=== PATIENT | female | born 1935 | race Hispanic/Latino ===

== ENCOUNTER 2019-07-02 16:59 | Emergency (ER) | payer OTHER ==
[2019-07-02 17:47] LABS: Absolute Lymphocytes (CBC) 1.5 K/uL (0.7-4.9); Basophils % 0.5 % (0-1.3); Hematocrit 37.2 % (36.0-45.0); Lymphocytes % 26.6 % (15.3-44.8); RBC Red Blood Cell Count 4.21 M/uL (3.86-4.86)
[2019-07-02 17:53] LABS: Protime INR 0.97
--- NOTE | 2019-07-02 18:02 | RAD REPORT ---
EXAM DESCRIPTION: RAD - Chest Single View - 07/02/2019 5:56 pm CLINICAL HISTORY: CHEST PAIN Chest pain. COMPARISON: Chest Single View dated 06/26/2017; Chest Pa And Lat (2 Views) dated 11/08/2016 FINDINGS: Portable technique limits examination quality. Mild interstitial pulmonary edema seen. Heart is moderately enlarged in size. No displaced fractures. Small to moderate hiatal hernia. IMPRESSION: Mild CHF.
[2019-07-02 18:16] LABS: ALT/SGPT 17 U/L (12-78); AST/SGOT 15 U/L (15-37); Albumin 3.7 g/dL (3.4-5.0); Alkaline Phosphatase 95 U/L (45-117); BUN Blood Urea Nitrogen 18 mg/dL (7-18); Bicarbonate 26 mmol/L (21-32); Bilirubin Direct 0.1 mg/dL (0-0.2); Bilirubin Total 0.3 mg/dL (0.2-1.0); Glucose Level 93 mg/dL (74-106); NT PRO-BNP 606 pg/mL (<450); Potassium 3.7 mmol/L (3.5-5.1); Protein, Total 7.2 g/dL (6.4-8.2); Sodium Level 139 mmol/L (136-145); Troponin (Emerg Dept Use Only) < 0.02 ng/mL (0.0-0.045)
--- NOTE | 2019-07-02 18:48 | EDPHYS ---
Physician Documentation [facility] Name: Hasmukh Escobar Age: 84 yrs Sex: Female : 1935 Arrival Date: 07/02/2019 Time: 17:03 Bed 23 Private MD: ED Physician Tacho Rodriguez HPI: 07/02 17:56 This 84 yrs old Female presents to ER via Ambulatory with complaints of pm1 Doesn't Feel Right. 17:56 Indigestion for the past three days. Reports onset after eating for the past three pm1 days. Has a history of hiatal hernia. Patient reports not feeling well since yesterday. It started after she was told by her home health nurse that her blood pressure was elevated 150/80's. Patient does not have any chest pain or shortness of breath. but was concerned that she might be having a heart attack due to the elevated blood pressure with the indigestion. Severity of symptoms: Pain is currently a 0 / 10. . Historical: - Allergies: 17:20 Morphine; mg2 - Home Meds: 17:20 amlodipine 10 mg tab 1 tab once daily [Active]; esomeprazole magnesium 40 mg Oral cpDR mg2 1 cap once daily [Active]; metoprolol tartrate 50 mg Oral tab 1 tab one tab QAM one half tab QPM [Active]; tolterodine 4 mg Oral cp24 1 cap once daily [Active]; - PMHx: 17:20 hiatal hernia; Hypertension; mg2 - PSHx: 17:20 Cholecystectomy; Hysterectomy; mg2 - Immunization history:: Flu vaccine is up to date. - Social history:: Smoking status: Patient/guardian denies using tobacco, Patient/guardian denies using alcohol, street drugs, IV drugs. - Ebola Screening: : No symptoms or risks identified at this time. ROS: 17:56 Constitutional: Negative for fever, chills, and weight loss, Eyes: Negative for injury, pm1 pain, redness, and discharge, ENT: Negative for injury, pain, and discharge, Neck: Negative for injury, pain, and swelling, Cardiovascular: Negative for chest pain, palpitations, and edema, Respiratory: Negative for shortness of breath, cough, wheezing, and pleuritic chest pain, Abdomen/GI: Negative for abdominal pain, nausea, vomiting, diarrhea, and constipation, Back: Negative for injury and pain, : Negative for injury, bleeding, discharge, and swelling, MS/Extremity: Negative for injury and deformity, Skin: Negative for injury, rash, and discoloration, Neuro: Negative for headache, weakness, numbness, tingling, and seizure. Exam: 17:56 Constitutional: This is a well developed, well nourished patient who is awake, alert, pm1 and in no acute distress. Head/Face: Normocephalic, atraumatic. 17:56 Eyes: Right pupil equal round and reactive to light, extra-ocular motions intact. Lids and lashes normal. Right conjunctiva and sclera are non-icteric and not injected. Right cornea within normal limits. Right periorbital areas with no swelling, redness, or edema. Left eye atrophied ENT: Nares patent. No nasal discharge, no septal abnormalities noted. Tympanic membranes are normal and external auditory canals are clear. Oropharynx with no redness, swelling, or masses, exudates, or evidence of obstruction, uvula midline. Mucous membranes moist. Neck: Trachea midline, no thyromegaly or masses palpated, and no cervical lymphadenopathy. Supple, full range of motion without nuchal rigidity, or vertebral point tenderness. No Meningismus. Chest/axilla: Normal chest wall appearance and motion. Nontender with no deformity. No lesions are appreciated. Cardiovascular: Regular rate and rhythm with a normal S1 and S2. No gallops, murmurs, or rubs. Normal PMI, no JVD. No pulse deficits. Respiratory: Lungs have equal breath sounds bilaterally, clear to auscultation and percussion. No rales, rhonchi or wheezes noted. No increased work of breathing, no retractions or nasal flaring. Abdomen/GI: Soft, non-tender, with normal bowel sounds. No distension or tympany. No guarding or rebound. No evidence of tenderness throughout. Back: No spinal tenderness. No costovertebral tenderness. Full range of motion. Skin: Warm, dry with normal turgor. Normal color with no rashes, no lesions, and no evidence of cellulitis. MS/ Extremity: Pulses equal, no cyanosis. Neurovascular intact. Full, normal range of motion. 17:56 Neuro: Orientation: is normal, Mentation: is normal, Motor: is normal, moves all fours, Gait: is steady, at a normal pace, without difficulty. Vital Signs: 17:18 BP 153 / 86; Pulse 64; Resp 18; Temp 97.8; Pulse Ox 100% on R/A; Weight 72.12 kg; mg2 Height 5 ft. 0 in. (152.40 cm); Pain 0/10; 18:55 BP 150 / 83; Pulse 60; Resp 18; Temp 98(O); Pulse Ox 100% on R/A; Pain 0/10; mg2 17:18 Body Mass Index 31.05 (72.12 kg, 152.40 cm) mg2 MDM: 17:16 Patient medically screened. pm1 18:45 Data reviewed: vital signs. Data interpreted: Pulse oximetry: on room air is 100 %. pm1 Interpretation: normal. Counseling: I had a detailed discussion with the patient and/or guardian regarding: the historical points, exam findings, and any diagnostic results supporting the discharge/admit diagnosis, lab results, the need for outpatient follow up, to return to the emergency department if symptoms worsen or persist or if there are any questions or concerns that arise at home. 07/02 17:24 Order name: Basic Metabolic Panel; Complete Time: 18:19 pm1 07/02 17:24 Order name: CBC with Diff; Complete Time: 17:54 pm1 07/02 17:24 Order name: LFT's; Complete Time: 18:19 pm1 07/02 17:24 Order name: Magnesium; Complete Time: 18:19 pm1 07/02 17:24 Order name: NT PRO-BNP; Complete Time: 18:19 pm1 07/02 17:24 Order name: PT-INR; Complete Time: 18:00 pm1 07/02 17:24 Order name: Troponin (emerg Dept Use Only); Complete Time: 18:19 pm1 07/02 17:24 Order name: XRAY Chest (1 view); Complete Time: 18:19 pm1 07/02 17:24 Order name: EKG; Complete Time: 17:25 pm1 07/02 17:24 Order name: Cardiac monitoring; Complete Time: 17:34 pm1 07/02 17:24 Order name: EKG - Nurse/Tech; Complete Time: 17:34 pm1 07/02 17:24 Order name: IV Saline Lock; Complete Time: 17:45 pm1 07/02 17:24 Order name: Labs collected and sent; Complete Time: 17:45 pm1 07/02 17:24 Order name: O2 Per Protocol; Complete Time: 17:45 pm1 07/02 17:24 Order name: O2 Sat Monitoring; Complete Time: 17:45 pm1 Administered Medications: No medications were administered Disposition: 07/03 15:21 Co-signature as Attending Physician, Tacho Rodriguez MD. Disposition: 07/02/19 18:47 Discharged to Home. Impression: Essential (primary) hypertension. - Condition is Stable. - Discharge Instructions: Hypertension, How to Take Your Blood Pressure, [id number], DASH Eating Plan, Managing Your Hypertension. - Medication Reconciliation Form, Thank You Letter, Antibiotic Education, Prescription Opioid Use form. - Follow up: Emergency Department; When: As needed; Reason: Worsening of condition. Follow up: Private Physician; When: 2 - 3 days; Reason: Recheck today's complaints, Continuance of care, Re-evaluation by your physician. - Problem is new. - Symptoms have improved. Signatures: Dispatcher [employer] EDMS Bernabe Hastings, COLLAR BASTER JUMPBASTING COLLAR BASTER JUMPBASTING pm1 Tacho Rodriguez MD MD Israel Hernandez RN RN mg2 Corrections: (The following items were deleted from the chart) 07/02 19:03 18:47 07/02/2019 18:47 Discharged to Home. Impression: Essential (primary) mg2 hypertension. Condition is Stable. Forms are Medication Reconciliation Form, Thank You Letter, Antibiotic Education, Prescription Opioid Use. Follow up: Emergency Department; When: As needed; Reason: Worsening of condition. Follow up: Private Physician; When: 2 - 3 days; Reason: Recheck today's complaints, Continuance of care, Re-evaluation by your physician. Problem is new. Symptoms have improved. pm1
--- NOTE | 2019-07-02 18:48 | ER ---
Nurse's Notes [facility] Name: Hasmukh Escobar Age: 84 yrs Sex: Female : 1935 Arrival Date: 07/02/2019 Time: 17:03 Bed 23 Private MD: Diagnosis: Essential (primary) hypertension Presentation: 07/02 17:16 Presenting complaint: Patient states: i dont feel right like im weak and feeling of mg2 indigestion since yesterday. i dont have chest pain or shortness of breath. Transition of care: patient was not received from another setting of care. Onset of symptoms was July 01, 2019. Risk Assessment: Do you want to hurt yourself or someone else? Patient reports no desire to harm self or others. Initial Sepsis Screen: Does the patient meet any 2 criteria? No. Patient's initial sepsis screen is negative. Does the patient have a suspected source of infection? No. Patient's initial sepsis screen is negative. Care prior to arrival: None. 17:16 Method Of Arrival: Ambulatory mg2 17:16 Acuity: HUGO 3 mg2 Historical: - Allergies: 17:20 Morphine; mg2 - Home Meds: 17:20 amlodipine 10 mg tab 1 tab once daily [Active]; esomeprazole magnesium 40 mg Oral cpDR mg2 1 cap once daily [Active]; metoprolol tartrate 50 mg Oral tab 1 tab one tab QAM one half tab QPM [Active]; tolterodine 4 mg Oral cp24 1 cap once daily [Active]; - PMHx: 17:20 hiatal hernia; Hypertension; mg2 - PSHx: 17:20 Cholecystectomy; Hysterectomy; mg2 - Immunization history:: Flu vaccine is up to date. - Social history:: Smoking status: Patient/guardian denies using tobacco, Patient/guardian denies using alcohol, street drugs, IV drugs. - Ebola Screening: : No symptoms or risks identified at this time. Screenin:51 Abuse screen: Denies threats or abuse. Denies injuries from another. Nutritional mg2 screening: No deficits noted. Tuberculosis screening: No symptoms or risk factors identified. Fall Risk IV access (20 points). Assessment: 17:50 General: Appears in no apparent distress. comfortable, Behavior is calm, cooperative. mg2 Pain: Denies pain. Neuro: Level of Consciousness is awake, alert, obeys commands, Oriented to person, place, time, situation. Neuro: Reports weakness in whole body. Cardiovascular: Capillary refill < 3 seconds Patient's skin is warm and dry. Respiratory: Airway is patent Respiratory effort is even, unlabored, Respiratory pattern is regular, symmetrical. GI: No signs and/or symptoms were reported involving the gastrointestinal system. : No signs and/or symptoms were reported regarding the genitourinary system. EENT: No signs and/or symptoms were reported regarding the EENT system. Derm: Skin is intact, is healthy with good turgor, Skin is pink, warm \T\ dry. normal. Musculoskeletal: Circulation, motion, and sensation intact. Capillary refill < 3 seconds. 18:55 Reassessment: Patient states feeling better. mg2 Vital Signs: 17:18 BP 153 / 86; Pulse 64; Resp 18; Temp 97.8; Pulse Ox 100% on R/A; Weight 72.12 kg; mg2 Height 5 ft. 0 in. (152.40 cm); Pain 0/10; 18:55 BP 150 / 83; Pulse 60; Resp 18; Temp 98(O); Pulse Ox 100% on R/A; Pain 0/10; mg2 17:18 Body Mass Index 31.05 (72.12 kg, 152.40 cm) mg2 ED Course: 17:03 Patient arrived in ED. as 17:16 Bernabe Hastings NP is PHCP. pm1 17:16 Tacho Rodriguez MD is Attending Physician. pm1 17:16 Israel Hernandez, DENI is Primary Nurse. mg2 17:18 Triage completed. mg2 17:20 Arm band placed on. mg2 17:52 Patient has correct armband on for positive identification. career development manager on. Pulse mg2 ox on. NIBP on. Door closed. Warm blanket given. 17:52 No provider procedures requiring assistance completed. Inserted saline lock: 22 gauge mg2 in left antecubital area, using aseptic technique. Blood collected. 17:55 XRAY Chest (1 view) In Process Unspecified. EDMS 18:00 EKG done, by tomographic tech. reviewed by Bernabe Hastings NP. sm3 18:56 IV discontinued, intact, bleeding controlled, No redness/swelling at site. Pressure mg2 dressing applied. Administered Medications: No medications were administered Outcome: 18:47 Discharge ordered by . pm1 18:56 Discharged to home ambulatory. mg2 18:56 Condition: stable 18:56 Discharge instructions given to patient, Instructed on discharge instructions, follow up and referral plans. Demonstrated understanding of instructions, follow-up care. 19:03 Patient left the ED. mg2 Signatures: Dispatcher [employer] Sarah Sauceda Patrick, NP FUR GLAZER pm1 Israel Hernandez RN RN mg2 Sanjuana Guido 3
[2019-07-02 19:16] VITALS: O2SAT 100
[2019-07-02 19:17] VITALS: BP 150/83; TEMP 98
--- NOTE | 2019-07-03 07:18 | EKG ---
Test Date: 2019-07-02 Test Time: 17:31:58 Community Living Specialist: CASSIA MEASUREMENT RESULTS: Intervals: Rate: 64 NE: QRSD: 100 QT: 432 QTc: 445 [place]: P: NE: QRS: 37 T: 16 INTERPRETIVE STATEMENTS: Sinus rhythm T wave abnormality, consider inferior ischemia Abnormal ECG Compared to ECG 06/26/2017 17:26:58 T-wave abnormality now present Electronically Signed On 07-03-19 07:17:52 CDT by Chiki Moore
== END 2019-07-02 19:03 | disposition home or self-care (01) ==
LOC: ER 16:59
DX: I10 Essential (primary) hypertension (principal); Z88.6 Allergy status to analgesic agent
CPT/HCPCS: 36415; 71045; 80048; 80076; 83735; 83880; 84484; 85025; 85610; 93005; 99284

== ENCOUNTER 2020-03-07 07:56 | Emergency (ER) | payer OTHER ==
[2020-03-07] MEDS ORDERED: ONDANSETRON 4 MG/2 ML VIAL ONE (08:36)
[2020-03-07] MEDS ORDERED: MECLIZINE HCL 12.5 MG TAB ONE (08:36)
[2020-03-07] MEDS ORDERED: NA CHLORIDE 0.9% 500 ML ONE (08:37)
[2020-03-07 08:49] LABS: Absolute Lymphocytes (CBC) 0.9 K/uL (0.7-4.9); Basophils % 0.9 % (0-1.3); Hematocrit 37.9 % (36.0-45.0); MPV 8.3 fL (7.6-11.3)
[2020-03-07 08:53] LABS: Protime INR 0.97
[2020-03-07 08:57] LABS: Potassium 3.8 mmol/L (3.5-5.1)
--- NOTE | 2020-03-07 09:07 | RAD REPORT ---
EXAM DESCRIPTION: CT - Head Brain Wo Cont - 03/07/2020 8:45 am CLINICAL HISTORY: vertigo;Dizziness COMPARISON: No comparisons TECHNIQUE: Axial 5 mm thick images of the head were obtained without IV contrast. All CT scans are performed using dose optimization technique as appropriate and may include automated exposure control or mA/KV adjustment according to patient size. FINDINGS: No intracranial hemorrhage, mass, edema or shift of mid-line structures. No acute infarcti on changes seen. No cortical edema or sulcal effacement. Ventricles are normal. No significant atroph y or chronic ischemic changes seen. Asymmetry is created by head tilt. Mastoid air cells and visualized portions of the paranasal sinuses are clear. No acute bony findings. Patient has normal variant hyperostosis frontalis interna. Left globe is collapsed with calcification. This is a chronic appearance. IMPRESSION: No acute intracranial finding identifiable.
[2020-03-07 10:32] LABS: Urine Blood NEGATIVE (NEG); Urine Glucose NEGATIVE (NEG); Urine Protein NEGATIVE (NEG); Urine Specific Gravity 1.025 (1.005-1.030); Urine pH 5.5 (5.0-7.0)
[2020-03-07 10:40] LABS: Urine Bacteria <20 /HPF (<20); Urine Culture Reflex Order NOT NEEDED; Urine RBC <5 /HPF (NONE SEEN)
[2020-03-07] MEDS ORDERED: DIAZEPAM 2 MG TABLET ONE (11:16)
--- NOTE | 2020-03-07 13:04 | RAD REPORT ---
EXAM DESCRIPTION: MRI - Brain Wo Cont - 03/07/2020 12:53 pm CLINICAL HISTORY: Vertigo COMPARISON: March 07, [address] TECHNIQUE: Axial, sagittal, and coronal magnetic images of the brain were obtained. Contrast was not requested FINDINGS: No abnormal signal is present within the brain. Diffusion-weighted/ADC mapping does not reveal evidence of acute infarction. The ventricles are normal caliber. An extra-axial fluid collection is not present Fluid within the sinuses/mastoids is not noted Chronic deformity left globe IMPRESSION: No acute abnormality is displayed
--- NOTE | 2020-03-07 13:12 | EDPHYS ---
Physician Documentation [facility] Name: Hasmukh Escobar Age: 84 yrs Sex: Female : 1935 Arrival Date: 03/07/2020 Time: 07:58 Bed 5 Private MD: ED Physician Omkar Dunne HPI: 03/07 08:19 This 84 yrs old Female presents to ER via Wheelchair with complaints of rn Dizziness, Nausea. 08:19 The patient presents with dizziness, sense of spinning, vertigo. Onset: The rn symptoms/episode began/occurred this morning, upon awakening. Modifying factors: The symptoms are alleviated by holding head still, lying down, the symptoms are aggravated by movement of head, standing up, changing position. Severity of symptoms: At their worst the symptoms were moderate in the emergency department the symptoms have improved. The patient has not experienced similar symptoms in the past. The patient has not recently seen a physician. Reports when got out of bed and sat on edge, felt dizzy, room spinning, + nausea, no other neurological complaints, no recent head injury, denies previous stroke. No chest pain/fever/cough/abd pain. Reports better when laying down and not moving.. Historical: - Allergies: 08:10 Morphine; iw - Home Meds: 08:10 amlodipine 10 mg tab 1 tab once daily [Active]; esomeprazole magnesium 40 mg Oral cpDR iw 1 cap once daily [Active]; metoprolol tartrate 50 mg Oral tab 1 tab one tab QAM one half tab QPM [Active]; tolterodine 4 mg Oral cp24 1 cap once daily [Active]; valsartan-hydrochlorothiazide 320-12.5 mg Oral tab 1 tab once daily [Active]; - PMHx: 08:10 hiatal hernia; Hypertension; iw - PSHx: 08:10 Cholecystectomy; Hysterectomy; iw - Immunization history:: Adult Immunizations up to date. - Social history:: Smoking status: Patient denies any tobacco usage or history of. - Family history:: not pertinent. - Hospitalizations: : No recent hospitalization is reported. ROS: 08:19 Constitutional: Negative for fever, chills, and weight loss, Eyes: Negative for injury, rn pain, redness, and discharge, Cardiovascular: Negative for chest pain, palpitations, and edema, Respiratory: Negative for shortness of breath, cough, wheezing, and pleuritic chest pain, Abdomen/GI: Negative for abdominal pain, vomiting, diarrhea, and constipation, MS/Extremity: Negative for injury and deformity, Skin: Negative for injury, rash, and discoloration, Neuro: Negative for headache, weakness, numbness, tingling, and seizure. Exam: 08:19 Constitutional: This is a well developed, well nourished patient who is awake, alert, rn and in no acute distress. Head/Face: Normocephalic, atraumatic. Eyes: + left cataract with sunken globe, right eye normal exam. ENT: MMM Neck: Trachea midline, no thyromegaly or masses palpated, and no cervical lymphadenopathy. Supple, full range of motion without nuchal rigidity, or vertebral point tenderness. No Meningismus. Cardiovascular: Regular rate and rhythm. No pulse deficits. Respiratory: Speaking full sentences. No increased work of breathing, no retractions or nasal flaring. Abdomen/GI: soft, non-tender Skin: Warm, dry MS/ Extremity: Pulses equal, no cyanosis. Neurovascular intact. Full, normal range of motion. Equal circumference. Neuro: Awake and alert, GCS 15, oriented to person, place, time, and situation. Cranial nerves II-XII grossly intact. Motor strength 5/5 in all extremities. Sensory grossly intact. 09:09 ECG was reviewed by the Attending Physician. rn Vital Signs: 08:07 BP 130 / 51; Pulse 62; Resp 16; Temp 96.8; Pulse Ox 97% on R/A; Weight 72.12 kg; Height iw 5 ft. 0 in. (152.40 cm); 09:45 BP 135 / 56; Pulse 57; Resp 16; Pulse Ox 100% on R/A; Pain 0/10; hb 10:08 BP 143 / 59; Pulse 61; Resp 17; Pulse Ox 97% ; jl7 11:45 BP 148 / 58; Pulse 60; Resp 16; Temp 98.2; Pulse Ox 100% ; hb 13:00 BP 142 / 57; Pulse 60; Resp 15; Pulse Ox 98% on R/A; hb 08:07 Body Mass Index 31.05 (72.12 kg, 152.40 cm) iw MDM: 08:11 Patient medically screened. rn 09:27 ED course: Pt feels better, so far, neg w/u. . rn 13:10 Differential diagnosis: generalized weakness, hypovolemia, idiopathic dizziness, rn vertigo. Data reviewed: vital signs, nurses notes, lab test result(s), EKG, radiologic studies, CT scan, MRI, and as a result, I will discharge patient. Counseling: I had a detailed discussion with the patient and/or guardian regarding: the historical points, exam findings, and any diagnostic results supporting the discharge/admit diagnosis, lab results, radiology results, the need for outpatient follow up, to return to the emergency department if symptoms worsen or persist or if there are any questions or concerns that arise at home. Response to treatment: the patient's symptoms have mildly improved after treatment, and as a result, I will discharge patient. Special discussion: I discussed with the patient/guardian in detail that at this point there is no indication for admission to the hospital. It is understood, however, that if the symptoms persist or worsen the patient needs to return immediately for re-evaluation. ED course: No acute findings on MRi/ct head, UA neg, will dc home with prn meclizine and zofran with neuro f/u given vertigo symptoms. . 03/07 08:19 Order name: CBC with Diff; Complete Time: 09:16 rn 03/07 08:19 Order name: Basic Metabolic Panel; Complete Time: 09:16 rn 03/07 08:19 Order name: Protime (+inr); Complete Time: 09:16 rn 03/07 08:19 Order name: Ptt, Activated; Complete Time: 09:16 rn 03/07 08:19 Order name: Urine Microscopic Only; Complete Time: 10:47 rn 03/07 10:10 Order name: Urine Dipstick--Ancillary (enter results); Complete Time: 10:47 em1 03/07 08:19 Order name: CT Head Brain wo Cont; Complete Time: 09:16 rn 03/07 12:56 Order name: Brain Wo Cont; Complete Time: 13:10 EDMS 03/07 08:19 Order name: IV Start; Complete Time: 08:41 rn 03/07 08:19 Order name: Urine Dipstick-Ancillary (obtain specimen); Complete Time: 10:10 rn 03/07 08:22 Order name: EKG; Complete Time: 08:24 rn 03/07 08:22 Order name: EKG - Nurse/Tech; Complete Time: 09:18 rn EC:09 Rate is 59 beats/min. Rhythm is regular. QRS [place] is Normal. MT interval is normal. QRS rn interval is normal. QT interval is normal. No Q waves. T waves are Normal. No ST changes noted. Clinical impression: Sinus bradycardia. Interpreted by me. Reviewed by me. Administered Medications: 08:40 Drug: Meclizine 50 mg Route: PO; hb 09:30 Follow up: Response: No adverse reaction hb 08:40 Drug: Zofran (Ondansetron) 4 mg Route: IVP; Site: right antecubital; hb 09:10 Follow up: Response: No adverse reaction hb 08:40 Drug: NS 0.9% 500 ml Route: IV; Rate: bolus; Site: right antecubital; hb 09:30 Follow up: Response: No adverse reaction; IV Status: Completed infusion; IV Intake: hb 500ml 11:11 Drug: Valium 2 mg Route: PO; hb Disposition: 03/07/20 13:12 Discharged to Home. Impression: Vertigo, Dehydration. - Condition is Stable. - Discharge Instructions: Dehydration, Adult, Vertigo. - Prescriptions for Zofran ODT 4 mg Oral tablet,disintegrating - place 1 tablet by TRANSLINGUAL route every 8 hours As needed; 20 tablet. Meclizine 25 mg Oral Tablet - take 1 tablet by ORAL route every 8 hours As needed; 30 tablet. - Medication Reconciliation Form, Thank You Letter, Antibiotic Education, Prescription Opioid Use form. - Follow up: Carlo Light MD; When: As needed; Reason: Recheck today's complaints, Re-evaluation by your physician. - Problem is new. - Symptoms have improved. Signatures: Dispatcher [employer] EDMS Nadia Wong RN RN Omkar Dunne MD MD rn Baxter, Heather, RN RN Corrections: (The following items were deleted from the chart) 09:16 08:19 Constitutional: This is a well developed, well nourished patient who is awake, rn alert, and in no acute distress. Head/Face: Normocephalic, atraumatic. Eyes: + left cataract, right eye normal exam. ENT: MMM Neck: Trachea midline, no thyromegaly or masses palpated, and no cervical lymphadenopathy. Supple, full range of motion without nuchal rigidity, or vertebral point tenderness. No Meningismus. Cardiovascular: Regular rate and rhythm. No pulse deficits. Respiratory: Speaking full sentences. No increased work of breathing, no retractions or nasal flaring. Abdomen/GI: soft, non-tender Skin: Warm, dry MS/ Extremity: Pulses equal, no cyanosis. Neurovascular intact. Full, normal range of motion. Equal circumference. Neuro: Awake and alert, GCS 15, oriented to person, place, time, and situation. Cranial nerves II-XII grossly intact. Motor strength 5/5 in all extremities. Sensory grossly intact. rn 11:59 09:28 Brain Wo Cont+MRI.RAD.BRZ ordered. EDMS EDMS 12:56 11:58 MRA Head Wo Cont ordered. EDMS EDMS 13:38 13:12 03/07/2020 13:12 Discharged to Home. Impression: Vertigo; Dehydration. Condition hb is Stable. Forms are Medication Reconciliation Form, Thank You Letter, Antibiotic Education, Prescription Opioid Use. Follow up: Carlo Light; When: As needed; Reason: Recheck today's complaints, Re-evaluation by your physician. Problem is new. Symptoms have improved. rn
--- NOTE | 2020-03-07 13:12 | ER ---
Nurse's Notes [facility] Name: Hasmukh Escobar Age: 84 yrs Sex: Female : 1935 Arrival Date: 03/07/2020 Time: 07:58 Bed 5 Private MD: Diagnosis: Vertigo;Dehydration Presentation: 03/07 08:07 Chief complaint: Patient states: started to feel dizzy and nauseated about an hour ago, iw feels like the room is spinning, worse when she moves, denies vomiting. Coronavirus screen: Proceed with normal triage. Patient denies a cough. Patient denies shortness of breath or difficulty breathing. Patient denies measured and/or subjective temperature greater than 100.4F prior to today's visit. Patient denies travel on a cruise ship or to a country the [facility] [place] currently lists as an affected area. Patient denies contact with known and/or suspected case of COVID-19. Ebola Screen: Patient negative for fever greater than or equal to 101.5 degrees Fahrenheit, and additional compatible Ebola Virus Disease symptoms Patient denies exposure to infectious person. Patient denies travel to an Ebola-affected area in the 21 days before illness onset. No symptoms or risks identified at this time. Initial Sepsis Screen: Does the patient meet any 2 criteria? No. Patient's initial sepsis screen is negative. Does the patient have a suspected source of infection? No. Patient's initial sepsis screen is negative. Risk Assessment: Do you want to hurt yourself or someone else? Patient reports no desire to harm self or others. Onset of symptoms was March 07, 2020. 08:07 Method Of Arrival: Wheelchair iw 08:07 Acuity: HUGO 3 iw Historical: - Allergies: 08:10 Morphine; iw - Home Meds: 08:10 amlodipine 10 mg tab 1 tab once daily [Active]; esomeprazole magnesium 40 mg Oral cpDR iw 1 cap once daily [Active]; metoprolol tartrate 50 mg Oral tab 1 tab one tab QAM one half tab QPM [Active]; tolterodine 4 mg Oral cp24 1 cap once daily [Active]; valsartan-hydrochlorothiazide 320-12.5 mg Oral tab 1 tab once daily [Active]; - PMHx: 08:10 hiatal hernia; Hypertension; iw - PSHx: 08:10 Cholecystectomy; Hysterectomy; iw - Immunization history:: Adult Immunizations up to date. - Social history:: Smoking status: Patient denies any tobacco usage or history of. - Family history:: not pertinent. - Hospitalizations: : No recent hospitalization is reported. Screenin:15 Abuse screen: Denies threats or abuse. Denies injuries from another. Nutritional hb screening: No deficits noted. Tuberculosis screening: No symptoms or risk factors identified. Fall Risk None identified. Assessment: 08:15 General: Appears in no apparent distress. Behavior is calm, cooperative. Pain: Denies hb pain. Neuro: Level of Consciousness is awake, alert, obeys commands, Oriented to person, place, time, situation, Reports dizziness. Cardiovascular: Capillary refill < 3 seconds Patient's skin is warm and dry. Respiratory: Airway is patent Respiratory effort is even, unlabored, Respiratory pattern is regular, symmetrical. GI: Abdomen is non-distended, Reports nausea. : No signs and/or symptoms were reported regarding the genitourinary system. EENT: No signs and/or symptoms were reported regarding the EENT system. Derm: Skin is pink, warm \T\ dry. Musculoskeletal: No signs and/or symptoms reported regarding the musculoskeletal system. 09:00 Reassessment: Patient appears in no apparent distress at this time. Patient and/or hb family updated on plan of care and expected duration. Pain level reassessed. Patient is alert, oriented x 3, equal unlabored respirations, skin warm/dry/pink. 10:17 Reassessment: Pt to bathroom via wheelchair with assistance. Urine specimen provided. hb Pt reported being very dizzy, unable to ambulate without holding onto nurse, the wall, or bars on wall. Dr. Dunne notified. Pt assisted back to bed, placed back on monitor, bed locked in low position, call light within reach. 11:15 Reassessment: Patient appears in no apparent distress at this time. Patient and/or hb family updated on plan of care and expected duration. Pain level reassessed. Patient is alert, oriented x 3, equal unlabored respirations, skin warm/dry/pink. Reassessment: Patient appears in no apparent distress at this time. Patient and/or family updated on plan of care and expected duration. Pain level reassessed. Patient is alert, oriented x 3, equal unlabored respirations, skin warm/dry/pink. 12:30 Reassessment: Patient appears in no apparent distress at this time. No changes from hb previously documented assessment. Patient and/or family updated on plan of care and expected duration. Pain level reassessed. 13:30 Reassessment: Patient appears in no apparent distress at this time. Patient and/or hb family updated on plan of care and expected duration. Pain level reassessed. Patient is alert, oriented x 3, equal unlabored respirations, skin warm/dry/pink. Patient denies pain at this time. Patient states symptoms have improved. Vital Signs: 08:07 BP 130 / 51; Pulse 62; Resp 16; Temp 96.8; Pulse Ox 97% on R/A; Weight 72.12 kg; Height iw 5 ft. 0 in. (152.40 cm); 09:45 BP 135 / 56; Pulse 57; Resp 16; Pulse Ox 100% on R/A; Pain 0/10; hb 10:08 BP 143 / 59; Pulse 61; Resp 17; Pulse Ox 97% ; jl7 11:45 BP 148 / 58; Pulse 60; Resp 16; Temp 98.2; Pulse Ox 100% ; hb 13:00 BP 142 / 57; Pulse 60; Resp 15; Pulse Ox 98% on R/A; hb 08:07 Body Mass Index 31.05 (72.12 kg, 152.40 cm) iw ED Course: 07:58 Patient arrived in ED. as 08:09 Triage completed. iw 08:11 Omkar Dunne MD is Attending Physician. rn 08:15 Patient has correct armband on for positive identification. Bed in low position. hb 08:26 Arm band placed on. hb 08:38 Inserted saline lock: 20 gauge in right antecubital area, using aseptic technique. hb Blood collected. 08:41 Elyse Pal, RN is Primary Nurse. hb 08:47 CT Head Brain wo Cont In Process Unspecified. EDMS 09:29 EKG done, by ED staff, reviewed by Omkar Dunne MD. jl7 13:11 Carlo Light MD is Referral Physician. rn 13:34 No provider procedures requiring assistance completed. IV discontinued, intact, hb bleeding controlled, No redness/swelling at site. Pressure dressing applied. Administered Medications: 08:40 Drug: Meclizine 50 mg Route: PO; hb 09:30 Follow up: Response: No adverse reaction hb 08:40 Drug: Zofran (Ondansetron) 4 mg Route: IVP; Site: right antecubital; hb 09:10 Follow up: Response: No adverse reaction hb 08:40 Drug: NS 0.9% 500 ml Route: IV; Rate: bolus; Site: right antecubital; hb 09:30 Follow up: Response: No adverse reaction; IV Status: Completed infusion; IV Intake: hb 500ml 11:11 Drug: Valium 2 mg Route: PO; hb Intake: 09:30 IV: 500ml; Total: 500ml. hb Outcome: 13:12 Discharge ordered by . rn 13:34 Discharged to home via wheelchair, with family. hb 13:34 Condition: stable 13:34 Discharge instructions given to patient, Instructed on discharge instructions, follow up and referral plans. medication usage, Demonstrated understanding of instructions, follow-up care, medications, Prescriptions given X 2. 13:38 Patient left the ED. hb Signatures: Dispatcher [employer] EDMS Sarah Jackson Irene, DENI CHEEMA Omkar Dunne MD MD rn Baxter, Heather, RN RN Cedrick Coles RN RN [email or web address] Corrections: (The following items were deleted from the chart) 11:59 11:57 In radiology for Brain Wo Cont+[email or web address]. EDMS EDMS 12:56 11:59 In radiology for MRA Head Wo Cont. EDMS EDMS 13:37 10:58 BP 145 / 9; Pulse 60bpm; Resp 16bpm; Pulse Ox 100%; Temp 98.2F; hb hb
--- NOTE | 2020-03-08 12:25 | EKG ---
Test Date: 2020-03-07 Test Time: 09:05:31 Shot Dropper: ROSI MEASUREMENT RESULTS: Intervals: Rate: 59 WV: 178 QRSD: 94 QT: 412 QTc: 407 [place]: P: 104 WV: 178 QRS: 7 T: 70 INTERPRETIVE STATEMENTS: Sinus bradycardia Otherwise normal ECG Compared to ECG 07/02/2019 17:31:58 Sinus rhythm no longer present T-wave abnormality no longer present Possible ischemia no longer present Electronically Signed On 03-08-20 12:22:33 CDT by Desmond Wright
== END 2020-03-07 13:38 | disposition home or self-care (01) ==
LOC: ER 07:56
DX: E86.0 Dehydration (principal); I10 Essential (primary) hypertension; Z88.5 Allergy status to narcotic agent
CPT/HCPCS: 96361; 93005; 85025; 80048; 36415; 85610; 85730; 70450; 70551; 96374; 99284; J7040; J2405; 81003; 81015; J8597